=== PATIENT | female | born 1995 | race Caucasian/White ===

== ENCOUNTER 2021-06-09 15:40 | Outpatient (REF) | payer BC, SELFPAY ==
--- NOTE | 2021-06-09 15:00 | PAPFT_PTH ---
PATIENT: Monet Shanks LOC: [facility] U#:[id number] AGE/SX: 25/F ROOM: RE06/09/[address]: Teri Beltran : 1995 BED: DIS: 06/09/2021 SPEC #: [id number] RECD: 06/10/21 12:37 STATUS: VERO REQ #: [id number] YARA: 06/09/21 15:[address]: Kathrine Parker DEPT: [facility] Cytology RECD BY: Gayle Cameron ENTERED: 06/10/21 12:38 SP TYPE: PAPFT OTHR DR: DAVIE Ochoa Tissues: 1 - CX/ENDOCX FOR PAP SMEARS Procedures: PAP THIN PREP/[facility] Screening Comments: [id number]
[2021-06-12 16:39] LABS: Chlamydia Result Negative (Negative); GC Result Negative (Negative)
== END 2021-06-09 15:41 | disposition home or self-care (01) ==
LOC: LBN 15:40
PROVIDERS: PCP Nurse Practitioner Pediatrics; Visit Provider Obstetrics & Gynecology Gynecology
DX: Z11.3 Encounter for screening for infections with a predominantly sexual mode of transmission (principal); Z12.4 Encounter for screening for malignant neoplasm of cervix
CPT/HCPCS: 87491; 87591; 88142